=== PATIENT | female | born 1980 | race Caucasian/White ===

== ENCOUNTER 2018-09-10 01:09 | Inpatient (IN) | payer BC, OTHER ==
[2018-09-10] MEDS ORDERED: CEFAZOLIN/Water 2 GM/20 ML SYRINGE SLOW IVP SCH (05:39)
[2018-09-10] MEDS ORDERED: Docusate 100 MG CAP PO PRN (05:39)
[2018-09-10] MEDS ORDERED: Acetaminophen 500 MG TAB PO PRN (05:39)
[2018-09-10] MEDS ORDERED: Bicitra 30 ML UDCUP PO SCH (05:39)
[2018-09-10] MEDS ORDERED: Promethazine HCl 25 MG/ML VIAL IM PRN ×2 (05:39→09:01)
[2018-09-10] MEDS ORDERED: Ondansetron HCl/PF 4 MG/2 ML Vial IVP PRN ×3 (05:39→09:01)
[2018-09-10 06:32] VITALS: BMI 39.2
[2018-09-10 06:40] LABS: Hemoglobin 12.8 g/dL (12.0-16.0); Mean Corpuscular HGB CONC 34.4 g/dL (32.0-36.0); Mean Corpuscular Hemoglobin 30.9 pg (27.0-31.0); Mean Corpuscular Volume 89.9 fL (78.0-98.0); Mean Platelet Volume 7.4 fL (7.4-10.4); Platelet Count 308 thou/uL (130-400); RBC Distribution Width 12.9 % (11.5-14.5); Red Blood Cell (RBC) Count 4.12 mill/uL (4.20-5.40); White Blood Cell (WBC) Count 15.3 thou/uL (4.8-10.8)
[2018-09-10] MEDS ORDERED: Fentanyl 100 MCG/2 ML VIAL ONE ×2 (07:01→08:00)
[2018-09-10] MEDS ORDERED: Oxytocin 10 UNITS/ML VIAL ONE ×2 (07:02→07:04)
[2018-09-10] MEDS ORDERED: Lidocaine 1% PF 5 ML VIAL ONE (07:04)
[2018-09-10] MEDS ORDERED: Ketorolac Tromethamine 30 MG/ML VIAL ONE ×2 (07:05→11:49)
[2018-09-10] MEDS ORDERED: Bupivacaine 0.75% W/DEXTROSE 8.25% 2 ML AMP ONE (07:05)
[2018-09-10] MEDS ORDERED: PHENYLEPHRINE-NS 100 MCG/ML 10 ML SYRINGE ONE ×2 (07:05→11:49)
[2018-09-10] MEDS ORDERED: Ondansetron HCl/PF 4 MG/2 ML Vial ONE ×2 (07:08→11:49)
[2018-09-10] MEDS ORDERED: Morphine PF 1 MG/ML SYR ONE (07:09)
[2018-09-10 07:17] LABS: Syphilis Antibody Nonreactive (Nonreactive); Syphilis Antibody Index 0.03 S/CO (<1.00 Non-Reactive)
[2018-09-10 07:18] LABS: HBSAg Index 0.24 S/CO (0-0.99); Hep B Surf Ag Non-Reactive S/CO (NonReactive)
[2018-09-10] MEDS ORDERED: ePHEDrine/0.9% NaCl/PF SYRINGE 50 mg/10 ml ONE ×2 (07:40→11:49)
[2018-09-10] MEDS ORDERED: Midazolam HCl 2 mg/2 ml Vial ONE (07:50)
[2018-09-10] MEDS ORDERED: diphenhydrAMINE 50 MG/ML VIAL IVP PRN (08:57)
[2018-09-10] MEDS ORDERED: Eucerin (Mineral Oil/Petrolatum,White) 30 gm Jar TOP PRN (08:57)
[2018-09-10] MEDS ORDERED: Naloxone HCl 0.4 mg/ml Vial IVP PRN ×2 (08:57)
[2018-09-10] MEDS ORDERED: Naloxone HCl 0.4 mg/ml Vial IV PRN (08:57)
[2018-09-10] MEDS ORDERED: Ketorolac Tromethamine 30 MG/ML VIAL IVP PRN (08:57)
[2018-09-10] MEDS ORDERED: Communication Order-Pharmacy FS SCH (09:00)
[2018-09-10] MEDS ORDERED: Lanolin Ointment 7 GM TUBE TOP PRN (09:01)
[2018-09-10] MEDS ORDERED: Zolpidem Tartrate 5 MG TAB PO PRN (09:01)
[2018-09-10] MEDS ORDERED: Meperidine HCl/PF 25 MG/ML VIAL IM PRN (09:01)
[2018-09-10] MEDS ORDERED: Adacel (T-DAP) 0.5 ML VIAL IM ONE (09:01)
[2018-09-10] MEDS ORDERED: diphenhydrAMINE 25 MG CAP PO PRN (09:01)
[2018-09-10] MEDS ORDERED: Misoprostol 200 MCG TAB PR PRN (09:01)
[2018-09-10] MEDS ORDERED: Acetaminophen 325 MG TAB PO PRN (09:01)
[2018-09-10] MEDS ORDERED: Bisacodyl 10 MG SUPP PR PRN (09:01)
[2018-09-10] MEDS ORDERED: Lactated Ringer's 1,000 ML IV SCH (09:15)
[2018-09-10] MEDS ORDERED: NS / Oxytocin 40 units/1000ml 1,000 ML IV SCH (09:15)
[2018-09-10] MEDS: Ibuprofen 800 MG TAB PO SCH ×2 (14:06→20:06)
[2018-09-10] MEDS: Docusate Calcium (SURFAK) 240 MG CAP PO SCH (20:06)
[2018-09-10] MEDS: Ferrous Sulfate 325 MG TAB PO SCH (21:36)
[2018-09-11] MEDS: HYDROcodone/Acetaminophen 5/325 mg Tablet PO PRN ×5 (00:35→21:18)
[2018-09-11] MEDS: Ibuprofen 800 MG TAB PO SCH ×4 (05:38→21:18)
[2018-09-11 05:39] LABS: Hemoglobin 10.6 g/dL (12.0-16.0); Mean Corpuscular HGB CONC 33.6 g/dL (32.0-36.0); Mean Corpuscular Hemoglobin 31.1 pg (27.0-31.0); Mean Corpuscular Volume 92.5 fL (78.0-98.0); Mean Platelet Volume 7.5 fL (7.4-10.4); Platelet Count 248 thou/uL (130-400); RBC Distribution Width 13.2 % (11.5-14.5); White Blood Cell (WBC) Count 14.4 thou/uL (4.8-10.8)
[2018-09-11] MEDS: Simethicone Chewable 80 MG TAB PO PRN ×3 (07:56→21:17)
[2018-09-11] MEDS: Docusate Calcium (SURFAK) 240 MG CAP PO SCH ×2 (09:47→21:17)
[2018-09-11] MEDS: Ferrous Sulfate 325 MG TAB PO SCH ×2 (09:47→21:19)
[2018-09-11] MEDS: Prenatal Vitamin 1 TAB PO SCH (09:47)
[2018-09-11] MEDS ORDERED: guaiFENesin 100 MG/5 ML UDCUP PO PRN (14:39)
[2018-09-11] MEDS: Pseudoephedrine HCl 30 MG TAB PO SCH ×2 (16:26→17:14)
[2018-09-11] MEDS ORDERED: Milk Of Magnesia 30 ML UDCUP PO PRN (18:38)
[2018-09-12] MEDS: Pseudoephedrine HCl 30 MG TAB PO SCH (03:31)
[2018-09-12] MEDS: HYDROcodone/Acetaminophen 5/325 mg Tablet PO PRN ×3 (03:32→12:18)
[2018-09-12] MEDS: Ferrous Sulfate 325 MG TAB PO SCH (07:20)
[2018-09-12] MEDS: Ibuprofen 800 MG TAB PO SCH ×2 (07:29→14:14)
[2018-09-12] MEDS: Prenatal Vitamin 1 TAB PO SCH (07:56)
[2018-09-12] MEDS: Docusate Calcium (SURFAK) 240 MG CAP PO SCH (07:57)
[2018-09-12 13:07] VITALS: BP 130/82; TEMP 98.4
--- NOTE | 2018-09-12 15:25 | OP ---
DATE OF PROCEDURE: 09/10/2018 ATTENDING STAFF PHYSICIAN: Musa Gunn M.D. SURGEONS: 1. Musa Gunn M.D. 2. Blessing Ross DO. ADMEASURER SURGEON: Amanda Patel M.D. PREOPERATIVE DIAGNOSES: 1. Term intrauterine at 39 weeks. 2. Prior . 3. No trial of labor. POSTOPERATIVE DIAGNOSES: 1. Term intrauterine at 39 weeks. 2. Prior . 3. No trial of labor. PROCEDURES PERFORMED: 1. Repeat low transverse section. 2. Risk reducing bilateral salpingectomy. ANESTHESIA: Spinal catheterization. FINDINGS: 1. Vigorous female , 6 pounds 11 ounces, Apgars 9 and 9. 2. Normal uterus, tubes, and ovaries. COMPLICATIONS: None. SPECIMENS REMOVED: 1. Cord blood. 2. Bilateral fallopian tubes. BLOOD LOSS: Approximately 600 mL (QBL 595). DESCRIPTION OF PROCEDURE: After thorough consent and counseling, Ms. Wren was taken to the operat ing room and adequate level of anesthesia was obtained via spinal catheterization. The patient was p repped and draped in the usual sterile fashion for abdominal surgery. A Batista had been placed in the bladder, which was draining clear urine. Attention was then turned to performing the repeat low tra nsverse section and RRBS. A Pfannenstiel incision was made and the old scar was excised. The incision was carried sharply to t he fascia, which was also sharply incised. The midline was identified and the rectus muscles were re tracted laterally. The abdominal peritoneal cavity was entered with usual safeguards carried out. A retractor was placed and a bladder flap was created on the vesicouterine peritoneum. A bladder blad e was then placed. A low transverse incision was made on the well-developed lower uterine segment. Upon entering the amniotic sac, copious amount of clear amniotic fluid was visualized. The wa s noted to be vertex presentation in the occiput anterior position, still high in the pelvis. Head w as delivered and baby was bulb suctioned on the abdomen. Shoulders and body were then delivered in a n atraumatic fashion. The cord was doubly clamped and cut and the was handed to the pediatric team in attendance for the delivery. The infant was a vigorous viable female weighing 6 pounds 11 o unces with Apgars of 9 and 9 obtained at 1 and 5 minutes respectively. Cord blood was obtained. The placenta was manually removed from the uterus. The uterus was exteriorized and good tone was noted. The uterine cavity was cleared of any remaining clot and fluid. The low transverse incision was cl osed with a running locking ligature of #1 chromic. A second imbricating layer was placed to facilit ate strength and hemostasis. The vesicouterine peritoneum was reapproximated to the lower segment wi th a running ligature of 3-0 Monocryl. All surgical sites were examined and noted to be hemostatic. The uterus, fallopian tubes and ovaries were inspected and noted to be normal. Because of the patie nt's family history, risk reduction bilateral salpingectomy had been approved by the ethics committee . The fallopian tubes were grasped on the right followed to its fimbriated end. The tube was then g rasped approximately a cm from the uterine cornu. The tube was doubly ligated using 0 plain suture. The vessels were then isolated and individually ligated using a combination of 0 plain and 2-0 chrom ic suture. The distal end of the fallopian tube was then isolated and the tubo-ovarian ligament vess els were crossclamped, coagulated, and transected. The tube was removed from the operative field. T he same procedure was performed on the left. All surgical sites were examined and noted to be hemost atic. The posterior cul-de-sac and gutters were cleared of clot and fluid. Seprafilm was applied to the low transverse incision and to the anterior aspect of the uterus for adhesion prevention. The u terus was returned to the abdomen. Good tone and hemostasis again appreciated. Lap, sponge, and nee dle counts correct. The peritoneum was then closed with a running ligature of 2-0 Vicryl. The rectu s muscles were reapproximated in the midline with interrupted ligatures of 2-0 Vicryl. The fascia wa s then closed with two ligatures of 0 Vicryl suture, which were tied in the midline. Good fascial in tegrity was appreciated. The incision was irrigated with copious amount of warm normal saline. The subcutaneous tissue was closed with interrupted ligatures of 2-0 plain. The skin was then closed wit h a subcuticular stitch of 4-0 Monocryl. A pressure dressing and ice packs were subsequently placed. Lap, sponge, and needle counts correct x3. Estimated blood loss during the surgical procedure was approximately 600 mL. A calculated QBL following the procedure was 595 mL. The patient was returned to the recovery room in good condition. Immediately following surgery, the patient and family were made aware of the surgical procedure and operative findings. Questions were answered to their satisf action. Mother and baby were doing well postoperatively.
== END 2018-09-12 17:46 | disposition home or self-care (01) | DRG 785 ==
LOC: EDBD → L&D 05:31 → 3SE 11:34 → EDSTATUS 13:11
PROVIDERS: ADMIT Obstetrics & Gynecology; ATTEND Obstetrics & Gynecology
PROC: 10D00Z1 Extraction of Products of Conception, Low, Open Approach (ICD-10-PCS; principal; 2018-09-10)
PROC: 0UT70ZZ Resection of Bilateral Fallopian Tubes, Open Approach (ICD-10-PCS; 2018-09-10)
DX: O34.211 Maternal care for low transverse scar from previous cesarean delivery (principal); Z3A.39 39 weeks gestation of pregnancy; Z37.0 Single live birth; O69.81X0 Labor and delivery complicated by cord around neck, without compression, not applicable or unspecified
CPT/HCPCS: 36415; 51702; 85027; 85461; 86780; 86850; 86900; 86901; 87340; 88304; 90384; 96372; J1885; J2001; J2250; J2274; J2405; J2550; J2590; J3010; J3490

== ENCOUNTER 2019-06-28 09:35 | Outpatient (CLI) | payer OTHER ==
--- NOTE | 2019-06-28 10:33 | MMO ---
Bilateral MAMMO Bilat Diag [facility]. CLINICAL HISTORY: Patient is 39 years old and is seen for diagnostic exam and lump or thickening in the upper-outer region of both breasts. The patient has no family history of breast cancer. The patient has no personal history of cancer. VIEWS: The views performed were: bilateral craniocaudal with tomosynthesis; bilateral mediolateral oblique with tomosynthesis; and bilateral mediolateral with tomosynthesis. FILMS COMPARED: The present examination has been compared to a prior imaging study performed at [facility] on 06/28/2019. MAMMOGRAM FINDINGS: There are scattered fibroglandular densities. There are no suspicious masses, suspicious calcifications, or new areas of architectural distortion. IMPRESSION: THERE IS NO MAMMOGRAPHIC EVIDENCE OF MALIGNANCY. A ROUTINE FOLLOW-UP MAMMOGRAM AT AGE 40 IS RECOMMENDED. THE RESULTS OF THIS EXAM WERE SENT TO THE PATIENT. ACR BI-RADS Category 1 - Negative MAMMOGRAPHY NOTE: 1. A negative mammogram report should not delay a biopsy if a dominant of clinically suspicious mass is present. 2. Approximately 10% to 15% of breast cancers are not detected by mammography. 3. Adenosis and dense breasts may obscure an underlying neoplasm. Reported by: JERALD ENCISO MD Electonically Signed: [id number]
--- NOTE | 2019-06-28 11:55 | ULT ---
BILATERAL BREAST ULTRASOUND: Date: 06/28/19 COMPARISON: Mammogram dated 06/28/19. HISTORY: 39-year-old female with palpable mass in upper outer aspect of the right breast and tenderness in the se locations. TECHNIQUE: Multiplanar Call scale and color Doppler images were obtained in a bilateral breast ultrasound. FINDINGS: In the upper outer aspect of both breasts, no suspicious masses are seen. Normal appearing breast par enchyma is seen. No cyst is identified. IMPRESSION: BI-RADS Category 1 - Negative. Annual screening mammography is recommended at the age of 40. POS: [facility]
== END 2019-06-28 09:36 | disposition home or self-care (01) ==
LOC: BICMAMMO 09:35
PROVIDERS: ATTEND Obstetrics & Gynecology
DX: N63.11 Unspecified lump in the right breast, upper outer quadrant (principal); N63.21 Unspecified lump in the left breast, upper outer quadrant
CPT/HCPCS: 77066; G0279

== ENCOUNTER 2020-06-03 12:50 | Emergency (ER) | payer BC ==
[2020-06-03] MEDS ORDERED: Lidocaine 4% Cream 5 GM TUBE w/ Tegaderm ONE (13:42)
[2020-06-03] MEDS ORDERED: Lidocaine 1% (PF) 30 ML VIAL ONE (13:42)
== END 2020-06-03 15:05 | disposition home or self-care (01) ==
LOC: ERS 12:50
DX: K64.5 Perianal venous thrombosis (principal); G43.909 Migraine, unspecified, not intractable, without status migrainosus; F17.210 Nicotine dependence, cigarettes, uncomplicated; Z79.899 Other long term (current) drug therapy
CPT/HCPCS: 46083; J2001

== ENCOUNTER 2022-03-29 16:55 | Emergency (ER) | payer BC ==
[2022-03-29 17:49] LABS: #Eosinphils 0.3 thou/uL (0.0-0.7); #Lymphocytes 2.5 thou/uL (1.20-3.40); #Monocytes 0.6 thou/uL (0.11-0.59); #Neutrophils 9.1 thou/uL (1.40-6.50); %Basophils 0.4 % (0.0-1.0); %Eosinophils 2.1 % (0.0-10.0); %Monocytes 4.6 % (0.0-10.0); Hemoglobin 14.5 g/dL (12.0-16.0); Mean Corpuscular HGB CONC 33.3 g/dL (32.0-36.0); Mean Corpuscular Hemoglobin 29.9 pg (27.0-31.0); Mean Corpuscular Volume 89.6 fL (78.0-98.0); Mean Platelet Volume 6.9 fL (7.4-10.4); Platelet Count 331 thou/uL (130-400); RBC Distribution Width 12.1 % (11.5-14.5); Red Blood Cell (RBC) Count 4.86 mill/uL (4.20-5.40); White Blood Cell (WBC) Count 12.4 thou/uL (4.8-10.8)
[2022-03-29 18:40] LABS: BHCG - Serum Negative (NEGATIVE); Pregs Control Background? CLEAR/WHITE (CLR/WHITE); Pregs Control Bar Appear? YES (CONTROL BAR)
[2022-03-29 18:44] LABS: ALT (SGPT) 32 U/L (8-55); AST (SGOT) 21 U/L (5-34); Albumin 4.2 g/dL (3.5-5.0); Alkaline Phosphatase 92 U/L (40-110); Anion Gap 16 mmol/L (10-20); BUN (Urea Nitrogen) 13 mg/dL (7.0-18.7); Bilirubin, Total 0.2 mg/dL (0.2-1.2); Calc. Creatinine Clearance 0 mL/min (70-130); Calcium 9.2 mg/dL (7.8-10.44); Carbon Dioxide 22 mmol/L (22-29); Chloride 106 mmol/L (98-107); Globulin 3.4 g/dL (2.4-3.5); Glucose 104 mg/dL (70-105); Potassium 3.9 mmol/L (3.5-5.1); Protein, Total 7.6 g/dL (6.0-8.3); Sodium 140 mmol/L (136-145)
[2022-03-29] MEDS ORDERED: Ketorolac Tromethamine 30 MG/ML VIAL ONE (18:44)
[2022-03-29] MEDS ORDERED: Ondansetron PF 4 MG/2 ML Vial ONE (18:44)
[2022-03-29 19:55] LABS: Bacteria/HPF None Seen HPF (None Seen); Bilirubin Negative (Negative); Blood, Urine 3+ (Negative); Clarity Extra Turbid (Clear); Glucose, Urine (Dipstick) Normal (Negative); Ketone, Urine Negative (Negative); Leukocyte 250 Leu/uL (Negative); Nitrite Negative (Negative); Protein, Urine (Dipstick) 50 mg/dL (Neg-Trace); RBC/HPF Greater than 50 HPF (0-3); Specific Gravity, Urine 1.017 (1.002-1.036); Urobilinogen Normal mg/dL (Less than 2); WBC/HPF Greater than 50 HPF (0-3); pH, Urine 5.5 (5.0-9.0)
== END 2022-03-29 21:08 | disposition home or self-care (01) ==
LOC: ERS 16:55
DX: N20.2 Calculus of kidney with calculus of ureter (principal); R11.2 Nausea with vomiting, unspecified; G43.909 Migraine, unspecified, not intractable, without status migrainosus; F17.210 Nicotine dependence, cigarettes, uncomplicated
CPT/HCPCS: 36415; 74176; 80053; 81003; 81015; 84703; 85025; 96374; 96375; J1885; J2405

== ENCOUNTER 2025-11-05 12:59 | Emergency (ER) | payer OTHER ==
[2025-11-05] MEDS ORDERED: Lidocaine/Transparent Dressing 1 EACH KIT ONE (13:53)
== END 2025-11-05 14:17 | disposition home or self-care (01) ==
LOC: ERS 12:59
DX: K64.5 Perianal venous thrombosis (principal); F17.210 Nicotine dependence, cigarettes, uncomplicated
CPT/HCPCS: 99282